=== PATIENT | female | born 1980 | race Caucasian/White ===

== ENCOUNTER 2019-02-12 18:56 | Emergency (ER) | payer MEDICAID, OTHER ==
[~2019-02-12] VITALS: Ht 170.2 cm; Wt 131.0 kg
[~2019-02-12 18:56] MED LIST: IBUP-1542 PO; PREN-29 PO
[2019-02-12 19:11] VITALS: BP 169/79; PULSE 100; RESP 18; Ht 170.2 cm; Wt 131.0 kg
--- NOTE | 2019-02-12 19:44 | ERD ---
ER Documentation Chief Complaint Chief Complaint L shoulder pain x 2 days, no injury HPI Patient is a 38-year-old female, no past medical history, presents the ER for concerns of left elbow pain for the last 3 days. Patient denies falls or trauma. Patient denies any fevers or chills. Patient has no rashes or swelling to the affected area. Patient reports taking Tylenol with no alleviation of symptoms.. Patient denies any chest pain, shortness of breath, nausea, vomiting, LOC. Patient is R hand dominant. ROS All systems reviewed and are negative except as per history of present illness. Medications Home Meds Active Scripts Ibuprofen* (Motrin*) 600 Mg Tab, 600 MG PO Q6, #30 TAB Prov:LEBRON PEREYRA PA-C 02/12/19 Reported Medications Vit-Fe Fumarate-FA* (Agus Tablet*) 1 Tab Tablet, 1 TAB PO DAILY, TAB 07/13/14 Allergies Allergies: Coded Allergies: No Known Allergy (Unverified , 04/14/14) PMhx/Soc Medical and Surgical Hx: pt denies Medical Hx, pt denies Surgical Hx Hx Alcohol Use: No Hx Substance Use: No Hx Tobacco Use: No Smoking Status: Never smoker FmHx Family History: No diabetes Physical Exam Vitals Vital Signs Date Temp Pulse Resp B/P (MAP) Pulse Ox O2 O2 Flow FiO2 Time Delivery Rate 02/12/19 98.7 100 18 169/79 99 19:11 (109) Physical Exam GENERAL: Well-developed, well-nourished female. Appears in no acute distress. HEAD: Normocephalic, atraumatic. EYES: Pupils are equally reactive bilaterally. EOMs grossly intact. No conjunctival erythema. ENT: Moist mucous membranes. No uvula deviation. No kissing tonsils. NECK: Supple. No meningismus. Normal range of motion of the neck. LUNG: Clear to auscultation bilaterally. No rhonchi, wheezing, rales or coarse breath sounds. HEART: Regular rate and rhythm. No murmurs, rubs or gallops. EXTREMITIES: Equal pulses bilaterally. No peripheral clubbing, cyanosis or edema. No unilateral leg swelling. NEUROLOGIC: Alert and oriented. Normal speech. Steady gait. SKIN: Normal color. Warm and dry. No rashes or lesions. LUE: No deformity, erythema, ecchymosis, warmth or swelling. Skin intact. Tender to palpation over the medial epicondyle. Decreased range of motion secondary to pain. Sensation intact to light touch. Neurovascularly intact. (Able to give thumbs up, make an ok sign, cross digits 2 and 3, thumb to pinky opposition. 2+ RP.) No snuffbox tenderness. Results 24 hrs Current Medications Medications Dose Sig/Nena Start Time Status Last (Trade) Ordered Route PRN Stop Time Admin Dose Reason Admin Ibuprofen 600 mg ONCE ONCE 02/12/19 DC 02/12/19 (Motrin) PO 20:00 19:45 02/12/19 20:01 Procedures/MDM ED COURSE: The patient was stable throughout ED course. I kept the patient and/or family informed of laboratory and diagnostic imaging results throughout the ED course. DIAGNOSTIC IMAGING: Read by radiologist. DIAGNOSTIC IMAGING REPORT Patient: ELLIOTT LOGAN : 1980 Age: 38 Sex: F MR #: [id number] DOS: 02/12/191935 Ordering MD: LEBRON PEREYRA PA-C Location: [facility] Room/Bed: PROCEDURE: XR Elbow. CLINICAL INDICATION: Left elbow pain. TECHNIQUE: AP, lateral and oblique views of the left elbow performed. COMPARISON: None. FINDINGS: There is normal alignment of the elbow joint. There is a small osseous fragment adjacent to the medial epicondyle. The proximal radius/ulna are normal in appearance. There is no significant osteopenia. There are normal joints without evidence of arthritis or effusion. The fat pad is normal in appearance. The soft tissues are unremarkable. IMPRESSION: 1. Small osseous fragment adjacent to the medial epicondyle, concerning for possible avulsion fracture. CT may be helpful for further evaluation. RPTAT: HGAS .Bernardino Trevino MD, MD Date Time Electronically viewed and signed by .Bernardino Trevino MD, MD on 02/12/2019 20:43 .S/ CC: LEBRON PEREYRA PA-C [id number] PROCEDURES: SPLINT APPLICATION: The patient was verbally consented at bedside prior to splint application. Patient was explained the risks, benefits and alternatives to this procedure. The patient was neurovascularly intact prior to and status post application of the splint. The patient tolerated the procedure well with no complications. Splint type: long arm splint Extremity: left Indication: Small osseous fragment adjacent to the medial epicondyle, concerning for possible avulsion fracture. CT may be helpful for further evaluation. MEDICAL DECISION MAKING: This is a 38-year-old female presents ER for concerns of left elbow pain. Patient denies any trauma or falls. Vital signs were reviewed. Patient was afebrile. Elbow XR showed Small osseous fragment adjacent to the medial epicondyle, concerning for possible avulsion fracture. CT may be helpful for further evaluation. She was placed in long-arm splint and advised to follow-up with sales and training specialist on an outpatient basis. Patient advised to remain in splint until seen and cleared by sales and training specialist. Low suspicion for open fracture, dislocation, vasculitis, septic joint or compartment syndrome. Patient was nontoxic, [id number] prior to discharge. PRESCRIPTIONS: Ibuprofen DISCHARGE: At this time, patient is stable for discharge and outpatient management. I have instructed the patient to follow-up with his/her primary care physician in 1-2 days. I have discussed with the patient the possibility of needing to see an sales and training specialist for further workup and imaging if the pain persists. I have instructed the patient to promptly return to the ER for any new or worsening symptoms including increased pain, swelling, redness, warmth or fever. The patient and/or family expressed understanding of and agreement with this plan. All questions were answered. Home care instructions were provided. Patient's blood pressure was elevated (>120/80) but appears stable without evidence of hypertensive emergency, hypertensive urgency or end-organ failure. I had discussion with the patient about the risks of hypertension. I have advised the patient to follow up with his/her primary care physician for outpatient monitoring and treatment for hypertension in 2-3 days. I have instructed the patient to return to the ER for any new or worsening symptoms including chest pain, shortness of breath, headache, blurred vision, confusion, nausea, vomiting or LOC. Disclaimer: Inadvertent spelling and grammatical errors are likely due to EHR/dictation software use and do not reflect on the overall quality of patient care. Also, please note that the electronic time recorded on this note does not necessarily reflect the actual time of the patient encounter. Departure Diagnosis: Primary Impression: Fracture of medial epicondyle of humerus Encounter type: initial encounter Fracture type: closed Fracture morphology: avulsion Fracture alignment: nondisplaced Laterality: left Qualified Codes: S42.445A - Nondisplaced fracture (avulsion) of medial epicondyle of left humerus, initial encounter for closed fracture Condition: Fair Patient Instructions: Contusion, Elbow Referrals: [facility] YOU HAVE RECEIVED A MEDICAL SCREENING EXAM AND THE RESULTS INDICATE THAT YOU DO NOT HAVE A CONDITION THAT REQUIRES URGENT TREATMENT IN THE EMERGENCY DEPARTMENT. FURTHER EVALUATION AND TREATMENT OF YOUR CONDITION CAN WAIT UNTIL YOU ARE SEEN IN YOUR DOCTORS OFFICE WITHIN THE NEXT 1-2 DAYS. IT IS YOUR RESPONSIBILITY TO MAKE AN APPOINTMENT FOR FOLOW-UP CARE. IF YOU HAVE A PRIMARY DOCTOR --you should call your primary doctor and schedule an appointment IF YOU DO NOT HAVE A PRIMARY DOCTOR YOU CAN CALL OUR PHYSICIAN REFERRAL HOTLINE AT IF YOU CAN NOT AFFORD TO SEE A PHYSICIAN YOU CAN CHOSE FROM THE FOLLOWING [facility] [address] [facility]. [facility] [address] [facility] [facility] [address] [facility] [facility] [address] [facility] [address]. [facility] [address] [facility]. [facility]. [address] [facility] YOU HAVE RECEIVED A MEDICAL SCREENING EXAM AND THE RESULTS INDICATE THAT YOU DO NOT HAVE A CONDITION THAT REQUIRES URGENT TREATMENT IN THE EMERGENCY DEPARTMENT. FURTHER EVALUATION AND TREATMENT OF YOUR CONDITION CAN WAIT UNTIL YOU ARE SEEN IN YOUR DOCTORS OFFICE WITHIN THE NEXT 1-2 DAYS. IT IS YOUR RESPONSIBILITY TO MAKE AN APPOINTMENT FOR FOLOW-UP CARE. IF YOU HAVE A PRIMARY DOCTOR --you should call your primary doctor and schedule and appointment IF YOU DO NOT HAVE A PRIMARY DOCTOR YOU CAN CALL OUR PHYSICIAN REFERRAL HOTLINE AT . IF YOU CAN NOT AFFORD TO SEE A PHYSICIAN YOU CAN CHOSE FROM THE FOLLOWING [facility] INSTITUTIONS: [facility] [id number] [place] [address] [facility] [address] [place] [address] [facility] + [facility] [address] [place] [address] [facility] Additional Instructions: Remain in splint until seen and cleared by sales and training specialist. Call your primary care doctor TOMORROW for an appointment during the next 1-2 days.See the doctor sooner or return here if your condition worsens before your appointment time. LEBRON PEREYRA PA-C Feb 12, 2019 19:44
[2019-02-12] MEDS ORDERED: IBUPROFEN 600 MG TAB PO ONE (20:00)
== END 2019-02-12 21:16 | disposition home or self-care (01) ==
LOC: FTE 18:56
DX: S42.445A Nondisplaced fracture (avulsion) of medial epicondyle of left humerus, initial encounter for closed fracture (principal); X58.XXXA Exposure to other specified factors, initial encounter; Y92.9 Unspecified place or not applicable
CPT/HCPCS: 29105; 73080; Z7502; Z7610